=== PATIENT | female | born 1980 | race Caucasian/White ===

== ENCOUNTER 2021-06-30 10:32 | Emergency (ER) | payer OTHER ==
[~2021-06-30] VITALS: Ht 170.2 cm; Wt 59.0 kg
--- NOTE | 2021-06-30 10:41 | NUR ---
RHEA 858 FROM HOME C/O ABDOMINAL PAIN P/S 02/12 X6DAYS, N/V/D TODAY, "I NEED PAIN AND NAUSEA MEDS", AAOX3, BREATHING EVEN AND NON LABORED, AWAITING MD ALAMO
--- NOTE | 2021-06-30 10:48 | NUR ---
IV ESTABLISHED. R AC 20G. LABS DRAWN AND COLLECTED. CONVERTED TO SALINE LOCK.
--- NOTE | 2021-06-30 10:49 | NUR ---
SEEN AND EXAMINED BY DR ARCE
--- NOTE | 2021-06-30 10:52 | NUR ---
URINE SAMPLE COLLECTED AND SENT
[2021-06-30] MEDS ORDERED: LIDOCAINE VISCOUS 2% UD 15 ML UDC ONE (10:57)
[2021-06-30] MEDS ORDERED: FAMOTIDINE/PF INJ 20 MG/2 ML VIAL IV ONE ×2 (10:57→11:00)
[2021-06-30] MEDS ORDERED: MAG HYDROX/AL HYDROX/SIMETH 30 ML UDC ONE (10:57)
[2021-06-30] MEDS ORDERED: ONDANSETRON HCL/PF 4 MG/2 ML VIAL ONE (10:57)
[2021-06-30] MEDS ORDERED: IV NS 0.9% 1,000 ML BAG IV ONE (11:00)
[2021-06-30] MEDS ORDERED: ONDANSETRON HCL/PF 4 MG/2 ML VIAL IVP ONE (11:00)
[2021-06-30] MEDS ORDERED: LIDOCAINE VISCOUS 2% UD 15 ML UDC MM ONE (11:00)
[2021-06-30] MEDS ORDERED: MAG HYDROX/AL HYDROX/SIMETH 30 ML UDC PO ONE (11:00)
[2021-06-30 11:11] LABS: BASOPHILS % (AUTO) 0.3 % (0.0-2.0); EOSINOPHILS % (AUTO) 0.1 % (0.0-6.0); HEMATOCRIT 44 % (33-45); HEMOGLOBIN 14.4 g/dL (11.5-14.8); LYMPHOCYTES # (AUTO) 1.7 K/uL (0.8-4.8); LYMPHOCYTES % (AUTO) 13.9 % (20.0-44.0); MEAN CORPUSCULAR HGB CONC 33 g/dl (31.0-36.0); MEAN CORPUSCULAR VOLUME 92 fL (82-100); MONOCYTES # (AUTO) 0.4 K/uL (0.1-1.30); NEUTROPHILS # (AUTO) 10.2 K/uL (1.8-8.9); NEUTROPHILS % (AUTO) 82.7 % (43.0-81.0); PLATELET COUNT (AUTO) 380 K/uL (150-450); RED BLOOD CELL COUNT(AUTO) 4.77 MIL/uL (4.0-5.2); WHITE BLOOD COUNT (AUTO) 12.3 K/uL (4.3-11.0)
[2021-06-30 11:15] LABS: BILIRUBIN,URINE SMALL (NEGATIVE); COLOR,URINE YELLOW (YELLOW); LEUKOCYTE ESTERASE ,URINE NEGATIVE (NEGATIVE); NITRITE, URINE NEGATIVE (NEGATIVE); PROTEIN,URINE 30 mg/dl (NEGATIVE); UGLUCOSE NEGATIVE (NEGATIVE); UROBILINOGEN,URINE 0.2 EU/dL (0.2)
[2021-06-30 11:30] LABS: ALBUMIN 4.5 g/dL (3.4-5.0); BILIRUBIN,DIRECT 0.1 mg/dL (0.0-0.2); BILIRUBIN,TOTAL 0.7 mg/dL (0.2-1.0); CALCIUM, SERUM 9.8 mg/dL (8.5-10.1); POTASSIUM 3.7 mmol/L (3.5-5.1); TOTAL PROTEIN, SERUM 8.6 g/dL (6.4-8.2)
[2021-06-30] MEDS ORDERED: MORPHINE SULFATE INJ 4 MG/ML DISP.SYRIN ONE (11:50)
[2021-06-30] MEDS ORDERED: MORPHINE SULFATE INJ 2 MG/ML DISP.SYRIN IV ONE (12:00)
[2021-06-30 12:23] LABS: RBC,URINE 0-2 /HPF (0-2)
[2021-06-30 12:24] LABS: BACTERIA,URINE None seen /HPF (None Seen); SQUAMOUS EPITHELIAL CELL,UR Rare /HPF (None Seen); WBC,URINE 0-2 /HPF (0-3)
[2021-06-30] MEDS ORDERED: FAMO-131 PO (13:01)
[2021-06-30] MEDS ORDERED: ONDA4TAB5 PO (13:01)
--- NOTE | 2021-06-30 13:23 | NUR ---
PATIENT A/OX4, AMBULATORY WITH STEADY GAIT. DENIES PAIN OR DISCOMFORT AT THIS TIME. Patient discharged to home in stable condition. Written and verbal after care instructions given. Patient verbalizes understanding of instruction.
[2021-06-30 13:24] VITALS: BP 116/53
== END 2021-06-30 13:25 | disposition home or self-care (01) ==
LOC: ER 10:39
DX: R10.816 Epigastric abdominal tenderness (principal); N20.0 Calculus of kidney; R11.2 Nausea with vomiting, unspecified; R19.7 Diarrhea, unspecified; F12.129 Cannabis abuse with intoxication, unspecified; Z87.19 Personal history of other diseases of the digestive system; Z87.738 Personal history of other specified (corrected) congenital malformations of digestive system
CPT/HCPCS: 36415; 74176; 80048; 80076; 80307; 80320; 81001; 83690; 84703; 85025; 96361; 96374; 96375; 99284; J2270; J2405; J3490; J7030; G0480